=== PATIENT | female | born 1975 | race Caucasian/White ===

== ENCOUNTER 2017-03-02 20:27 | Emergency (ER) | payer BC, MEDICAID ==
[~2017-03-02] VITALS: Ht 170.2 cm; Wt 100.7 kg
[~2017-03-02 20:27] MED LIST: DICL75 PO; MOTR200T PO; PERC5TAB12 PO; TYLE500T PO
[2017-03-02 20:43] VITALS: BP 142/102; PULSE 84; RESP 18; TEMP 98.8; O2SAT 98
[2017-03-02] MEDS ORDERED: ACET500T3 PO (20:52)
[2017-03-02] MEDS ORDERED: NEXI20CA PO (20:52)
[2017-03-02] MEDS ORDERED: IBUP200T2 PO (20:52)
--- NOTE | 2017-03-02 21:13 | PD ---
HPI Chief Complaint: Pain: Acute or Chronic Time Seen by Provider: 21:13 Travel History International Travel<30 days: No Contact w/Intl Traveler<30days: No Traveled to known affect area: No History of Present Illness HPI 42-year-old female history of osteoarthritis presents to the ED for evaluation of 2 day history of 8/10 right posterior knee pain. Worsened by weightbearing and certain motions. She states that she has been limping and this is causing her back to her. The back pain radiates around the right hip, down the lateral aspect of the right leg into the knee. Patient denies acute trauma or recent overuse. She denies numbness, weakness of the extremity. Endorses limited range of motion secondary to pain. She has been ambulatory. She denies any recent periods of immobilization, use of oral contraception, smoking history, history of blood clots. Treated at home with ice, elevation, ibuprofen with no improvement of symptoms. States that she saw an orthopedist 3 years ago but no one was willing to operate on this young patient. PFSH Past Medical History Arthritis: Yes (BILATERAL KNEES) Diminished Hearing: No Immunizations Current: Yes ?: Not Past Surgical History Genitourinary Surgery: Yes (BLADDER TAPE) Hysterectomy: Yes Other Surgery: Yes (PARTIAL FACELIFT) Social History Alcohol Use: Yes (VERY RARE) Tobacco Use: No Substance Use: No Allergies-Medications (Allergen,Severity, Reaction): Coded Allergies: No Known Allergies (Unverified , 03/02/17) Reported Meds & Prescriptions Reported Meds & Active Scripts Active Lortab (Hydrocodone-Acetaminophen) 5-325 Mg Tab 1-2 Tab PO Q6H PRN Flexeril (Cyclobenzaprine HCl) 10 Mg Tab 10 Mg PO TID Ibuprofen 800 Mg Tab 800 Mg PO Q8H Reported Nexium (Esomeprazole DR) 20 Mg Capdr 20 Mg PO DAILY Acetaminophen 500 Mg Tab 1,000 Mg PO Q6H PRN Ibuprofen 200 Mg Tab 200 Mg PO Q4H PRN Review of Systems Except as stated in HPI: all other systems reviewed are Neg Physical Exam Narrative GENERAL: Well-nourished, well-developed obese white female in no acute distress. SKIN: Focused skin assessment warm/dry. Tender ecchymosis of the medial aspect right knee. No erythema or warmth of the right knee noted. HEAD: Normocephalic. EYES: No scleral icterus. No injection or drainage. NECK: Supple, trachea midline. No JVD or lymphadenopathy. CARDIOVASCULAR: Regular rate and rhythm without murmurs, gallops, or rubs. RESPIRATORY: Breath sounds equal bilaterally. No accessory muscle use. GASTROINTESTINAL: Abdomen soft, non-tender, nondistended. MUSCULOSKELETAL: No cyanosis, or edema. Focused right lower extremity exam: 2+ radial pulse. Patient is holding the knee in slight flexion. ++ Popliteal tenderness to palpation. No palpable masses. Homans sign negative. Mild tenderness to palpation of the joint line. No patellar balloting. Range of motion, varus/valgus testing deferred secondary to pain. Strength 5/5 in all muscle groups. Sensation intact to light touch distally. Cap refill less than 2 seconds. BACK: Nontender without obvious deformity. No CVA tenderness. Data Data Last Documented VS Vital Signs Date Time Temp Pulse Resp B/P Pulse Ox O2 Delivery O2 Flow Rate FiO2 03/02/17 20:43 98.8 84 18 142/102 98 Orders Knee, Complete (4vws) (03/02/17 20:58) Ice/Cold Pack (03/02/17 20:58) Acetamin-Hydrocod 325-5 Mg (Warren 5-325 (03/02/17 21:45) Us Leg Venous Doppler (03/02/17 21:45) Ketorolac Inj (Toradol Inj) (03/02/17 22:45) Orphenadrine Inj (Norflex Inj) (03/02/17 22:45) MDM Medical Decision Making Medical Screen Exam Complete: Yes Emergency Medical Condition: Yes Differential Diagnosis Osteoarthritis versus Panda cyst versus DVT versus ligamentous injury versus septic joint versus other Narrative Course 42-year-old female history of osteoarthritis presents to the ED for evaluation of 2 day history of 8/10 right posterior knee pain. Worsened by weightbearing and certain motions. She states that she has been limping and this is causing her back to her. The back pain radiates around the right hip, down the lateral aspect of the right leg into the knee. Patient denies acute trauma or recent overuse. She denies numbness, weakness of the extremity. Endorses limited range of motion secondary to pain. She has been ambulatory. She denies any recent periods of immobilization, use of oral contraception, smoking history, history of blood clots. Treated at home with ice, elevation, ibuprofen with no improvement of symptoms. Vitals reviewed. Physical exam reveals an obese female in no acute distress. Is an ecchymosis of the medial aspect of the right knee. No erythema or warmth noted. Focused right lower extremity exam reveals a 2+ radial pulse. Patient is holding the knee in slight flexion. ++ Popliteal tenderness to palpation. No palpable masses. Homans sign negative. Mild tenderness to palpation of the joint line. No patellar balloting. Range of motion, varus/valgus testing deferred secondary to pain. Strength 5/5 in all muscle groups. Sensation intact to light touch distally. Cap refill less than 2 seconds. Patient was administered IM Toradol, IM Norflex, by mouth Lortab and an ice pack. X-rays reveal moderate to severe osteoarthritis with no bony injury. Ultrasound negative for DVT. Patient is also experiencing sciatica which I suspect is secondary to her limping gait. She is prescribed a short course of anti-inflammatories and muscle relaxants as well as 5 mg Lortab 20. She is instructed to rest, ice, elevate the extremity, take medications as prescribed, follow-up with the orthopedist. She indicated understanding of the instructions and is agreeable to the care plan. She is stable and discharged home. Diagnosis Primary Impression: Osteoarthritis of right knee Qualified Code: M17.11 - Primary osteoarthritis of right knee Additional Impression: Sciatic leg pain Referrals: Orthopedist Patient Instructions: General Instructions, Osteoarthritis (ED) Additional Instructions: Rest, ice, elevate the extremity. Apply ice no longer than 10-15 minutes per hour a few times a day. Begin anti-inflammatory medications tomorrow. 5-10 mg Lortab every 4-6 hours as needed for pain. Flexeril up to 3 times a day as needed for muscle spasm. Do not drive while taking Lortab or Flexeril. Return to normal, gentle activity as tolerated. No running, jumping activities for the next few weeks. Follow up with the orthopedist this week for further evaluation and possible intra-articular corticosteroid injections. Return to the ED for any urgent or emergent medical condition. Med/Other Pt SpecificInfo: Prescription(s) given Scripts Hydrocodone-Acetaminophen (Lortab)5-325 Mg Tab1-2 Tab PO Q6H PRN (PAIN) #20 TAB Ref 0 Prov:Sulaiman Lopez MD 03/02/17 Cyclobenzaprine (Flexeril)10 Mg Tab10 Mg PO TID #15 TAB Ref 0 Prov:Sulaiman Lopez MD 03/02/17 Ibuprofen 800 Mg Hyz025 Mg PO Q8H #20 TAB Ref 0 Prov:Sulaiman Lopez MD 03/02/17 Disposition: 01 DISCHARGE HOME Condition: Stable Martha Pulliam Mar 02, 2017 21:13
[2017-03-02] MEDS ORDERED: ACETAMINOPHEN/HYDROcodone 325 MG/5 MG TAB PO ONE (21:45)
--- NOTE | 2017-03-02 21:50 | RADHPO ---
EXAM DATE/TIME: 03/02/2017 21:07 [facility] COMPARISON: KNEE RIGHT COMPLETE (4VWS), January 24, 2015, 20:43. INDICATIONS : Right knee pain for three days. No known injury. MEDICAL HISTORY : Arthritis. SURGICAL HISTORY : None. ENCOUNTER: Initial ACUITY: 3 days PAIN SCORE: 10/10 LOCATION: Right knee. FINDINGS: Moderately prominent osteophytes in the lateral compartment without significant joint space narrowing . There is exuberant osteophyte formation in the patellofemoral articulation. Degenerative changes are very similar appearance to prior examination of December 2014. No evidence of fracture. The sup rapatellar soft tissues are normal thickness. CONCLUSION: Stable moderate severity degenerative changes. No acute findings. Igor Fernandez MD on March 02, 2017 at 21:48 Board Certified Radiologist. This report was verified electronically.
--- NOTE | 2017-03-02 22:35 | RADHPO ---
EXAM DATE/TIME: 03/02/2017 22:02 [facility] COMPARISON: No previous studies available for comparison. INDICATIONS : Right leg pain. MEDICAL HISTORY : Arthritis. SURGICAL HISTORY : Hysterectomy. Bladder tape. Bilateral knee surgery. Left bunionectomy. Partial facelift. ENCOUNTER: Initial ACUITY: 1 week PAIN SCORE: 8/10 LOCATION: Right leg. TECHNIQUE: Venous ultrasound of the leg was performed from the inguinal ligament to the proximal calf. Real-jennifer e, color Doppler and spectral tracing, compression and augmentation techniques were used. FINDINGS: There is normal compressibility of the deep venous system from the inguinal region to the proximal ca lf. No echogenic clot is seen in the lumen of the common femoral, femoral, popliteal, and posterior tibial veins. There is a normal response of the venous system to proximal and distal augmentation an d respiration. CONCLUSION: The study is negative for deep venous thrombosis right lower extremity. Igor Fernandez MD on March 02, 2017 at 22:33 Board Certified Radiologist. This report was verified electronically.
[2017-03-02] MEDS ORDERED: CYCL1TAB29 PO (22:43)
[2017-03-02] MEDS ORDERED: HYDR-3533 PO (22:43)
[2017-03-02] MEDS ORDERED: IBUP800T23 PO (22:43)
[2017-03-02] MEDS ORDERED: KETOROLAC TROMETHAMINE 60 MG/2 ML (IM) VIAL IM ONE (22:45)
[2017-03-02] MEDS ORDERED: ORPHENADRINE INJ 60 MG/2 ML AMP IM ONE (22:45)
== END 2017-03-02 23:01 | disposition home or self-care (01) ==
LOC: PHEFT 20:27
DX: M17.11 Unilateral primary osteoarthritis, right knee (principal); M79.604 Pain in right leg
CPT/HCPCS: 73564; 93971; 96372; 99284; J1885; J2360

== ENCOUNTER 2018-03-14 18:05 | Emergency (ER) | payer BC, MEDICAID ==
[~2018-03-14] VITALS: Ht 170.2 cm; Wt 100.0 kg
[~2018-03-14 18:05] MED LIST changes: +ACET500T3 PO; +CYCL10TA PO; -DICL75 PO; +HYDR-3533 PO; +IBUP1TAB7 PO; +IBUP200T47 PO; -MOTR200T PO; +NEXI20CA PO; -PERC5TAB12 PO; -TYLE500T PO
[2018-03-14 18:07] VITALS: BP 185/98; PULSE 97; RESP 16; TEMP 99.1; O2SAT 99
[2018-03-14 18:21] VITALS: BP 187/93; PULSE 92; RESP 18; O2SAT 99
--- NOTE | 2018-03-14 18:24 | PD ---
HPI Chief Complaint: Headache Time Seen by Provider: 18:11 Travel History International Travel<30 days: No Contact w/Intl Traveler<30days: No Traveled to known affect area: No History of Present Illness HPI Patient is a 43-year-old female with history of arthritis, presents the emergency room complaints of headache and dizziness for the past 2 and half weeks. Patient reports that for the past 2 and half weeks, she has had a pounding sensation to her head. Reports that she has been having intermittent episodes of lightheadedness/dizziness with her symptoms. Reports that she does not have history of hypertension, she has been keeping track of her blood pressure and noted it to be high with an average of a systolic blood pressure in the 180s and a diastolic blood pressure in the 110s. Patient reports that she initially assumed that her symptoms were due to taking Adderall 20 mg daily as she has been taking this medication since she was a teenager. Patient reports that she stopped taking this medication when the headaches began, reports that she has found no relief with her symptoms. Patient is concerned that her headaches and dizziness are due to hypertension which she does not have a diagnosis of. Patient did follow-up with her primary care doctor 3 weeks ago, reports that her blood pressure was 120/80 during that visit and has always been normal prior to the past 2-1/2 weeks. Patient does endorse that she is very stressed at work, reports that this could be also be exacerbating her blood pressure issues. Patient denies any chest pain or shortness of breath. Denies any nausea or vomiting, patient with no other complaints. PFSH Past Medical History Arthritis: Yes (BILATERAL KNEES) Diminished Hearing: No Immunizations Current: Yes Past Surgical History Genitourinary Surgery: Yes (BLADDER TAPE) Hysterectomy: Yes Other Surgery: Yes (PARTIAL FACELIFT) Social History Alcohol Use: Yes (VERY RARE) Tobacco Use: No Substance Use: No Allergies-Medications (Allergen,Severity, Reaction): Coded Allergies: No Known Allergies (Unverified Adverse Reaction, Unknown, 03/14/18) Reported Meds & Prescriptions Reported Meds & Active Scripts Active Reported Ibuprofen 200 Mg Tab 200 Mg PO Q4H PRN Review of Systems HENT: Positive: Headaches, Lightheadedness, No: Sore Throat, Neck Pain Cardiovascular: No: Chest Pain or Discomfort, Palpitations, Irregular Rhythm Neurologic: Positive: Dizziness, Headache, No: Weakness, Syncope Physical Exam Narrative GENERAL: Mild distress SKIN: Focused skin assessment warm/dry. HEAD: Atraumatic. Normocephalic. EYES: Pupils equal and round. No scleral icterus. No injection or drainage. ENT: No nasal bleeding or discharge. Mucous membranes pink and moist. NECK: Trachea midline. No JVD. CARDIOVASCULAR: Regular rate and rhythm. No murmur appreciated. RESPIRATORY: No accessory muscle use. Clear to auscultation. Breath sounds equal bilaterally. GASTROINTESTINAL: Abdomen soft, non-tender, nondistended. Hepatic and splenic margins not palpable. MUSCULOSKELETAL: No obvious deformities. No clubbing. No cyanosis. No edema. NEUROLOGICAL: Awake and alert. No obvious cranial nerve deficits. Motor grossly within normal limits. Normal speech. CN 2-12 grossly intact with no neurological deficits. PSYCHIATRIC: Appropriate mood and affect; insight and judgment normal. Data Data Last Documented VS Vital Signs Date Time Temp Pulse Resp B/P (MAP) Pulse Ox O2 Delivery O2 Flow Rate FiO2 03/14/18 19:48 88 18 186/96 (126) 99 Room Air 03/14/18 18:07 99.1 Orders Orders Complete Blood Count With Diff (03/14/18 18:19) Basic Metabolic Panel (Bmp) (03/14/18 18:19) Prothrombin Time / Inr (Pt) (03/14/18 18:19) Act Partial Throm Time (Ptt) (03/14/18 18:19) Ct Brain W/O Iv Contrast(Rout) (03/14/18 18:19) Ecg Monitoring (03/14/18 18:19) Iv Access Insert/Monitor (03/14/18 18:19) Oximetry (03/14/18 18:19) Sodium Chloride 0.9% Flush (Ns Flush) (03/14/18 18:30) Ed Urine Pregnancytest Poc (03/14/18 18:19) Electrocardiogram (03/14/18 ) Ketorolac Inj (Toradol Inj) (03/14/18 19:45) Amlodipine (Norvasc) (03/14/18 20:45) Ketorolac Inj (Toradol Inj) (03/14/18 20:45) Labs Laboratory Tests Test 03/14/18 18:35 White Blood Count 8.5 TH/MM3 Red Blood Count 4.65 MIL/MM3 Hemoglobin 13.8 GM/DL Hematocrit 40.3 % Mean Corpuscular Volume 86.7 FL Mean Corpuscular Hemoglobin 29.6 PG Mean Corpuscular Hemoglobin Concent 34.1 % Red Cell Distribution Width 11.5 % Platelet Count 358 TH/MM3 Mean Platelet Volume 8.0 FL Neutrophils (%) (Auto) 58.2 % Lymphocytes (%) (Auto) 32.8 % Monocytes (%) (Auto) 7.3 % Eosinophils (%) (Auto) 1.2 % Basophils (%) (Auto) 0.5 % Neutrophils # (Auto) 5.0 TH/MM3 Lymphocytes # (Auto) 2.8 TH/MM3 Monocytes # (Auto) 0.6 TH/MM3 Eosinophils # (Auto) 0.1 TH/MM3 Basophils # (Auto) 0.0 TH/MM3 CBC Comment DIFF FINAL Differential Comment Prothrombin Time 11.1 SEC Prothromb Time International Ratio 1.1 RATIO Activated Partial Thromboplast Time 25.6 SEC Blood Urea Nitrogen 15 MG/DL Creatinine 0.80 MG/DL Random Glucose 97 MG/DL Calcium Level 8.6 MG/DL Sodium Level 140 MEQ/L Potassium Level 3.5 MEQ/L Chloride Level 108 MEQ/L Carbon Dioxide Level 27.2 MEQ/L Anion Gap 5 MEQ/L Estimat Glomerular Filtration Rate 78 ML/MIN MDM Medical Decision Making Medical Screen Exam Complete: Yes Emergency Medical Condition: Yes Medical Record Reviewed: Yes Interpretation(s) EKG at 1835: NSR at 85bpm, qt/qtc: 354/397, no acute st or t wave changes Vital Signs Date Time Temp Pulse Resp B/P (MAP) Pulse Ox O2 Delivery O2 Flow Rate FiO2 03/14/18 18:28 99 Room Air 03/14/18 18:21 92 18 187/93 (124) 99 Room Air 03/14/18 18:21 100 Room Air 03/14/18 18:07 99.1 97 16 185/98 (127) 99 Differential Diagnosis hypertension, medication withdrawal, anxiety reaction Narrative Course Patient is a 43 year old female who presents to the ER with complaints of headache and dizzyness for the past 2.5 weeks. She did stop taking her Adderall 20mg upon onset of her symptoms with no improvement. Discussed with patient that she could be suffering from medication withdrawal as she did not taper off her Adderall and stopped the medication abruptly. Discussed need for work up and serial blood pressure rechecks. During the course of the patients emergency department visit, the patients history, examination, and differential diagnosis were reviewed with the patient. The patient was placed on a residential monitor with oximetry and frequent blood pressure monitoring. The patient had an IV access obtained and blood work sent for analysis. The patient was initially provided IV toradol for headache The patients laboratory studies were reviewed and remarkable for: CBC & BMP Diagram 03/14/18 18:35 Calcium Level 8.6 Radiology studies were reviewed and remarkable for Last Impressions Head CT 03/14/189 Signed Impressions: Service Date/Time: Wednesday, March 14, 2018 19:58 - CONCLUSION: No acute disease. Vinicius Frias MD Vital Signs Date Time Temp Pulse Resp B/P (MAP) Pulse Ox O2 Delivery O2 Flow Rate FiO2 03/14/18 19:48 88 18 186/96 (126) 99 Room Air 03/14/18 18:45 88 18 165/96 (119) 98 Room Air 03/14/18 18:28 99 Room Air 03/14/18 18:21 92 18 187/93 (124) 99 Room Air 03/14/18 18:21 100 Room Air 03/14/18 18:07 99.1 97 16 185/98 (127) 99 Patient reevaluated, patient reports that she is feeling a little better at this time, reports near resolution of her headache. Plan to start her on a low- dose of amlodipine given that her blood pressure has been in the 180s while in the emergency room. Patient will follow up with her primary care doctor in 1-2 days for blood pressure recheck, signs and symptoms of when to return to the emergency room was reviewed with patient in detail. Diagnosis Primary Impression: Headache Qualified Codes: R51 - Headache Additional Impression: Hypertension Qualified Codes: I10 - Essential (primary) hypertension Patient Instructions: General Instructions Additional Instructions: Please provide patient with a copy of their lab work and studies at discharge* * Please follow up with your primary care doctor in 1-2 days for blood pressure recheck Return to the ER if symptoms worsen or progress Return to the ER as needed Med/Other Pt SpecificInfo: Prescription(s) given Scripts Amlodipine (Amlodipine) 2.5 Mg Tab 2.5 MG PO DAILY for Blood Pressure Management, #30 TAB 0 Refills Prov: Poly Barker DO 03/14/18 Disposition: 01 DISCHARGE HOME Condition: Stable Poly Barker DO Mar 14, 2018 18:24
[2018-03-14 18:28] VITALS: O2SAT 99
[2018-03-14] MEDS ORDERED: SODIUM CHLORIDE 0.9% FLUSH 10 ML FLUSH IVF PRN (18:30)
[2018-03-14 18:41] LABS: BASOPHIL % 0.5 % (0.0-2.0); EOSINOPHIL # 0.1 TH/MM3 (0-0.4); EOSINOPHIL % 1.2 % (0.0-4.0); HEMATOCRIT 40.3 % (35.0-46.0); HEMOGLOBIN 13.8 GM/DL (11.6-15.3); LYMPH % 32.8 % (9.0-44.0); LYMPHOCYTE # 2.8 TH/MM3 (1.0-4.8); MEAN CELL VOLUME 86.7 FL (80.0-100.0); MEAN CORPUSCULAR HEMOGLOBIN 29.6 PG (27.0-34.0); MEAN CORPUSCULAR HGB CONC 34.1 % (32.0-36.0); MONO % 7.3 % (0.0-8.0); MONOCYTE # 0.6 TH/MM3 (0-0.9); NEUT % 58.2 % (16.0-70.0); PLATELET COUNT 358 TH/MM3 (150-450); RED BLOOD COUNT 4.65 MIL/MM3 (4.00-5.30); RED CELL DISTRIBUTION WIDTH 11.5 % (11.6-17.2); WHITE BLOOD COUNT 8.5 TH/MM3 (4.0-11.0)
[2018-03-14 18:45] VITALS: BP 165/96; PULSE 88; RESP 18; O2SAT 98
[2018-03-14 18:57] LABS: CALCIUM 8.6 MG/DL (8.5-10.1)
[2018-03-14 18:58] LABS: BICARBONATE 27.2 MEQ/L (21.0-32.0)
[2018-03-14 19:00] LABS: INTERNATIONAL NORMALIZED RATIO 1.1 RATIO; PROTHROMBIN TIME - PATIENT 11.1 SEC (9.8-11.6)
[2018-03-14 19:01] LABS: CREATININE 0.8 MG/DL (0.50-1.00)
[2018-03-14] MEDS ORDERED: KETOROLAC TROMETHAMINE 30 MG/ML (IVP) VIAL IV PUSH ONE ×2 (19:45→20:45)
[2018-03-14 19:48] VITALS: BP 186/96; PULSE 88; RESP 18; O2SAT 99
--- NOTE | 2018-03-14 20:38 | RADRPT ---
EXAM DATE/TIME: 03/14/2018 19:58 [facility] COMPARISON: No previous studies available for comparison. INDICATIONS : Cephalgia. Hypertension. RADIATION DOSE: 55.05 CTDIvol (mGy) MEDICAL HISTORY : None SURGICAL HISTORY : None. ENCOUNTER: Initial ACUITY: 2 weeks PAIN SCALE: 8/10 LOCATION: Bilateral cranial TECHNIQUE: Multiple contiguous axial images were obtained of the head. Using automated exposure control and adj ustment of the mA and/or kV according to patient size, radiation dose was kept as low as reasonably a chievable to obtain optimal diagnostic quality images. DICOM format image data is available electro nically for review and comparison. FINDINGS: CEREBRUM: The ventricles are normal for age. No evidence of midline shift, mass lesion, hemorrhage or acute in farction. No extra-axial fluid collections are seen. POSTERIOR FOSSA: The cerebellum and brainstem are intact. The 4th ventricle is midline. The cerebellopontine angle i s unremarkable. EXTRACRANIAL: The visualized portion of the orbits is intact. SKULL: The calvaria is intact. No evidence of skull fracture. CONCLUSION: No acute disease. Vinicius Frias MD on March 14, 2018 at 20:36 Board Certified Radiologist. This report was verified electronically.
[2018-03-14] MEDS ORDERED: amLODIPine BESYLATE 5 MG TAB PO ONE (20:45)
[2018-03-14] MEDS ORDERED: AMLO2.5T PO (20:48)
[2018-03-14 21:17] VITALS: BP 194/94
--- NOTE | 2018-03-15 15:26 | EKG ---
Date Performed: 03/14/2018 Time Performed: 18:35:43 PTAGE: 43 years EKG: Sinus rhythm NORMAL ECG NO PREVIOUS TRACING DOCTOR: Yasmany Valente Interpretating Date/Time 03/15/2018 15:21:29
== END 2018-03-14 21:18 | disposition home or self-care (01) ==
LOC: PHED 18:05
DX: R51 Headache (principal); I10 Essential (primary) hypertension; M17.0 Bilateral primary osteoarthritis of knee
CPT/HCPCS: 70450; 80048; 85025; 85610; 85730; 93005; 96374; 96376; 99285; J1885